=== PATIENT | male | born 1990 | race American Indian/Alaskan Native ===

== ENCOUNTER 2019-06-26 12:00 | Emergency (ER) | payer OTHER ==
[2019-06-26 12:12] VITALS: BP 137/67
--- NOTE | 2019-06-26 12:17 | Event Note ---
ED Screening Note Date of service: 06/26/19 Time: 12:15 ED Screening Note: This is a 29 y.o. M. that presents to the ER with chest pain radiating to LUE for 1-2 hours. This initial assessment/diagnostic orders/clinical plan/treatment(s) is/are subject to change based on patients health status, clinical progression and re- assessment by fellow clinical providers in the ED. Further treatment and workup at subsequent clinical providers discretion. Patient/guardian urged not to elope from the ED as their condition may be serious if not clinically assessed and managed. Initial orders include: EKG and CXR
--- NOTE | 2019-06-26 12:53 | XRay Report ---
CHEST 2 VIEWS INDICATION: Chest pain for one day. COMPARISON: None FINDINGS: Support devices: None. Heart: Within normal limits. Lungs/pleura: No acute air space or interstitial disease. No pneumothorax. Additional findings: None. IMPRESSION: No acute findings. Signer Name: Aubrey Mireles Jr, MD Signed: 06/26/2019 12:48 PM Workstation Name: [id number]
[2019-06-26] MEDS ORDERED: PROVENTIL IH ONE (13:13)
[2019-06-26] MEDS ORDERED: DELTASONE PO ONE (13:13)
[2019-06-26] MEDS ORDERED: IBUPROFEN PO ONE (13:14)
--- NOTE | 2019-06-26 14:37 | Emergency Department Report ---
<ANGELICA APONTE - Last Filed: 06/26/19 14:30> ED Shortness of Breath HPI - General Chief Complaint: Chest Pain Stated Complaint: CHEST DISCOMFORT Time Seen by Provider: 06/26/19 12:10 Source: patient Mode of arrival: Ambulatory Limitations: No Limitations - History of Present Illness Initial Comments: This is a 29 y.o. M. that presents to the ER with SOB, cough, chest pain radiating to LUE for 1-2 hours. URI symptoms 3 days ago no fever no chills no n/v no back pain , symptoms are exacerbated by environmental exposure symptoms are relieved by rest, pt denies hx of asthma. MD Complaint: shortness of breath, cough, chest pain Onset/Timin -: Gradual Severity: moderate Pain Scale: 5 Quality: other (tightness ) Consistency: constant Improves With: rest Worsens With: exertion, other (environmental exposure) Context: recent URI Associated Symptoms: chest pain, cough Treatments Prior to Arrival: none - Related Data Home Oxygen Therapy: No Previous Rx's Medication Instructions Recorded Last Taken Type ALBUTEROL Inhaler (OR & NICU) 2 puff IH QID PRN #1 device 06/26/19 Unknown Rx [ProAir HFA Inhaler] Azithromycin [Zithromax Z-CEM] 250 mg PO DAILY #6 tab 06/26/19 Unknown Rx Benzonatate [Tessalon Perles] 100 mg PO Q8HR PRN #30 capsule 06/26/19 Unknown Rx Ibuprofen [Motrin 800 MG tab] 800 mg PO Q8HR PRN #30 tablet 06/26/19 Unknown Rx predniSONE [Deltasone] 40 mg PO QDAY #10 tab NS 06/26/19 Unknown Rx Allergies Allergy/AdvReac Type Severity Reaction Status Date / Time No Known Allergies Allergy Unverified 06/26/19 12:09 ED Review of Systems Constitutional: malaise Eyes: denies: eye pain, eye discharge, vision change ENT: throat pain, congestion Respiratory: cough, shortness of breath, wheezing Cardiovascular: chest pain Endocrine: no symptoms reported Gastrointestinal: denies: abdominal pain, nausea, vomiting, diarrhea Genitourinary: as per HPI. denies: urgency, dysuria, frequency Musculoskeletal: denies: back pain, joint swelling, arthralgia, myalgia Skin: denies: rash, lesions Neurological: denies: headache, weakness, paresthesias, vertigo Psychiatric: denies: anxiety, depression Hematological/Lymphatic: denies: easy bleeding, easy bruising ED Past Medical Hx - Past Medical History Previous Medical History?: No - Surgical History Past Surgical History?: Yes Additional Surgical History: surgery to collar bone - Social History Smoking Status: Never Smoker Substance Use Type: Marijuana - Medications Home Medications: Home Medications Medication Instructions Recorded Confirmed Last Taken Type ALBUTEROL Inhaler (OR & NICU) 2 puff IH QID PRN #1 device 06/26/19 Unknown Rx [ProAir HFA Inhaler] Azithromycin [Zithromax Z-CEM] 250 mg PO DAILY #6 tab 06/26/19 Unknown Rx Benzonatate [Tessalon Perles] 100 mg PO Q8HR PRN #30 capsule 06/26/19 Unknown Rx Ibuprofen [Motrin 800 MG tab] 800 mg PO Q8HR PRN #30 tablet 06/26/19 Unknown Rx predniSONE [Deltasone] 40 mg PO QDAY #10 tab NS 06/26/19 Unknown Rx ED Physical Exam - General Limitations: No Limitations - Eye Eye exam: Present: normal appearance, PERRL, EOMI Pupils: Present: normal accommodation - ENT ENT exam: Present: normal orophraynx, mucous membranes moist, TM's normal bilaterally, normal external ear exam - Neck Neck exam: Present: normal inspection, full ROM. Absent: tenderness, meningism us, lymphadenopathy, thyromegaly - Expanded Neck Exam Expanded Neck exam: Absent: tenderness, midline deformity, anterior neck swelling, thyroid mass, carotid bruit, tracheal deviation - Respiratory Respiratory exam: Present: normal lung sounds bilaterally, wheezes, chest wall tenderness. Absent: respiratory distress, stridor, prolonged expiratory - Cardiovascular Cardiovascular Exam: Present: regular rate, normal rhythm, normal heart sounds. Absent: systolic murmur, diastolic murmur, rubs, gallop - GI/Abdominal GI/Abdominal exam: Present: soft, normal bowel sounds. Absent: distended, tenderness, guarding, bruit, hernia - Rectal Rectal exam: Present: deferred - Extremities Exam Extremities exam: Present: normal inspection, full ROM, normal capillary refill. Absent: tenderness, pedal edema, joint swelling, calf tenderness - Back Exam Back exam: Present: normal inspection, full ROM. Absent: tenderness, CVA tenderness (R), CVA tenderness (L), muscle spasm, paraspinal tenderness, rash noted - Neurological Exam Neurological exam: Present: alert, oriented X3, CN II-XII intact, normal gait - Psychiatric Psychiatric exam: Present: normal affect, normal mood - Skin Skin exam: Present: warm, dry, intact, normal color. Absent: rash ED Medical Decision Making - EKG Data EKG shows normal: sinus rhythm, axis, intervals, QRS complexes, ST-T waves Rate: normal - EKG Data When compared to previous EKG there are: previous EKG unavailable Interpretation: normal EKG EKG interp by ED Attending Susi lindsey hr: [address] Elevated MS 06/26/19 14:47 - Radiology Data Radiology results: report reviewed, image reviewed Ordering Physician: SONIYA PACHECO Date of Service: 06/26/19 Procedure(s): XR chest routine 2V Accession Number(s): [id number] cc: SONIYA PACHECO Fluoro Time In Minutes: CHEST 2 VIEWS INDICATION: Chest pain for one day. COMPARISON: None FINDINGS: Support devices: None. Heart: Within normal limits. Lungs/pleura: No acute air space or interstitial disease. No pneumothorax. Additional findings: None. IMPRESSION: No acute findings. Signer Name: Aubrey Mireles Jr, MD Signed: 06/26/2019 12:48 PM Workstation Name: [id number] Transcribed By: TTR Dictated By: AUBREY MIRELES JR, MD Electronically Authenticated By: AUBREY MIRELES JR, MD Signed Date/Time: 06/26/19 124 DD/ 1248 TD/TT: - Medical Decision Making this is bronchitis, cxr: no infiltrate no opacities, pain is improved with nsaids there is mild exp wheezing bilat upper lobes after neb tx pt is now ambulatory in ed without increase sob advises breathing is back to baselin cp is now 10/17 will be dc'd to home in stable condition at this time, will dc with rx for albuteroal inhaler, prednisone, ibuprofen, azithromycin, tessalon pearls, pt will follow up with pcp in 2-3 days given referral to [facility]. pt verbalized agreement and understanding of discharge plan. ED Disposition Clinical Impression: Bronchitis Disposition: DC-01 TO HOME OR SELFCARE Is pt being admited?: No Does the pt Need Aspirin: No Condition: Stable Instructions: Acute Bronchitis (ED) Prescriptions: predniSONE [Deltasone] 40 mg PO QDAY #10 tab NS Ibuprofen [Motrin 800 MG tab] 800 mg PO Q8HR PRN #30 tablet PRN Reason: pain ALBUTEROL Inhaler (OR & NICU) [ProAir HFA Inhaler] 2 puff IH QID PRN #1 device PRN Reason: Shortness Of Breath Benzonatate [Tessalon Perles] 100 mg PO Q8HR PRN #30 capsule PRN Reason: Cough Azithromycin [Zithromax Z-CEM] 250 mg PO DAILY #6 tab Referrals: PRIMARY CARE,MD [Primary Care Provider] - 3-5 Days [facility] [Outside] - 3-5 Days Forms: Work/School Release Form(ED) Time of Disposition: 14:53 <ABDIRIZAK IBRAHIM P - Last Filed: 06/26/19 15:42> ED Review of Systems ROS: Stated complaint: CHEST DISCOMFORT Other details as noted in HPI ED Course Vital Signs 06/26/19 06/26/19 12:10 13:37 Temperature 98.3 F Pulse Rate 59 L Respiratory 16 17 Rate Blood Pressure 137/67 O2 Sat by Pulse 98 Oximetry ED Medical Decision Making - Medical Decision Making Attestation: Available for consultation Critical care attestation.: If time is entered above; I have spent that time in minutes in the direct care of this critically ill patient, excluding procedure time. ED Disposition Is pt being admited?: No
== END 2019-06-26 15:05 | disposition home or self-care (01) ==
LOC: ED 12:00
DX: J40 Bronchitis, not specified as acute or chronic (principal); F12.10 Cannabis abuse, uncomplicated
CPT/HCPCS: 71046; 93005; 93010; 99284; J7512; 94640